=== PATIENT | female | born 1975 | race Two or more races ===

== ENCOUNTER 2020-04-13 09:07 | Day surgery (SDC) | payer OTHER ==
[~2020-04-13] VITALS: Ht 171.4 cm; Wt 53.2 kg
[2020-04-13] MEDS ORDERED: CHLORHEXIDINE 15 ML UDC ONE (09:37)
[2020-04-13] MEDS ORDERED: FERR324T5 PO (09:40)
[2020-04-13] MEDS ORDERED: OMEP40CA42 PO (09:40)
[2020-04-13] MEDS ORDERED: SUCR1TAB PO (09:40)
[2020-04-13 09:44] VITALS: BP 116/77
[2020-04-13] MEDS ORDERED: MIDAZOLAM 1 MG/ML, 2ML ONE (09:49)
[2020-04-13] MEDS ORDERED: FENTANYL PF 100 MCG/2ML ONE ×2 (09:49→11:28)
[2020-04-13] MEDS ORDERED: DEXAMETHASONE 4 MG/ML, 1ML ONE ×2 (09:52→10:41)
[2020-04-13 09:57] LABS: HCG UR SG 1.028 (1.003-1.030)
[2020-04-13] MEDS ORDERED: CHLORHEXIDINE 15 ML UDC MM ONE (10:00)
[2020-04-13] MEDS ORDERED: LACTATED RINGERS 1,000 ML IV SCH (10:00)
[2020-04-13] MEDS ORDERED: PROPOFOL 10 MG/ML, 20ML ONE (10:41)
[2020-04-13] MEDS ORDERED: ONDANSETRON 2MG/ML, 2ML ONE (10:41)
[2020-04-13] MEDS ORDERED: SUCCINYLCHOLINE 20 MG/ML, 10ML ONE (10:41)
[2020-04-13] MEDS ORDERED: EPINEPHRINE SYRINGE 0.1 MG/ML, 10ML ONE (11:36)
[2020-04-13] MEDS ORDERED: OXYcodone 5 MG/5 ML ORAL.SOL UDC PO PRN (12:00)
[2020-04-13] MEDS ORDERED: FENTANYL PF 100 MCG/2ML IV PRN (12:00)
[2020-04-13] MEDS ORDERED: PROMETHAZINE 25 MG/ML, 1ML IVPush PRN (12:00)
[2020-04-13] MEDS ORDERED: ONDANSETRON 2MG/ML, 2ML IVPush PRN (12:00)
[2020-04-13] MEDS ORDERED: ALBUTEROL SULFATE 2.5 MG/3 ML NPPB PRN (12:00)
[2020-04-13] MEDS ORDERED: hydrALAzine 20 MG/ML, 1ML IV PRN (12:00)
[2020-04-13] MEDS ORDERED: PROMETHAZINE 12.5 MG SUPP PR PRN (12:00)
[2020-04-13] MEDS ORDERED: MEPERIDINE/PF 25MG/0.5ML IVPush PRN (12:00)
[2020-04-13] MEDS ORDERED: HYDROmorphone 1 MG/ML, 1ML INJ IVPush PRN (12:00)
[2020-04-13] MEDS ORDERED: DIAZEPAM 5 MG/ML, 2ML IVPush PRN (12:00)
[2020-04-13] MEDS ORDERED: MIDAZOLAM 1 MG/ML, 2ML IV PRN (12:00)
[2020-04-13] MEDS ORDERED: LABETALOL 5MG/ML, 20ML IV PRN (12:00)
[2020-04-13] MEDS ORDERED: DIPHENHYDRAMINE 50 MG/ML, 1ML IVPush PRN (12:00)
[2020-04-13] MEDS ORDERED: EPHEDRINE 50 MG/ML, 1ML IVPush PRN (12:00)
[2020-04-13] MEDS ORDERED: OMNIPAQUE 350 MG/ML, 50 ML BOTTLE ONE (12:32)
== END 2020-04-13 13:50 | disposition home or self-care (01) ==
LOC: OUT 09:07
PROVIDERS: ATTEND Internal Medicine
DX: C16.9 Malignant neoplasm of stomach, unspecified (principal); C96.9 Malignant neoplasm of lymphoid, hematopoietic and related tissue, unspecified; C24.0 Malignant neoplasm of extrahepatic bile duct; K86.89 Other specified diseases of pancreas; Z79.899 Other long term (current) drug therapy; Z20.828 Contact with and (suspected) exposure to other viral communicable diseases
CPT/HCPCS: 43239; 43259; 43274; 74328; 81025; 87635; 88104; 88112; 88172; 88173; 88305; 88307; C1894; C2625; J0330; J1100; J2250; J2405; J2704; J3010; J7120; Q9967; 88333

== ENCOUNTER → 2020-06-18 | Outpatient (CLI) | payer OTHER ==
[~2020-06-18] MED LIST: FERR324T5 PO; OMEP40CA42 PO; OXYC1TAB14 PO; POLY17PO5 PO; SUCR1TAB PO; antibiotic PO
[2020-06-18 10:31] LABS: BASOPHILS % (AUTO) 1 % (0-1); EOSINOPHILS % (AUTO) 5 % (1-7); LYMPHOCYTES % (AUTO) 13 % (22-44); MEAN CORPUSCULAR HEMOGLOBIN 24.4 pg (27.0-34.8); MEAN CORPUSCULAR HGB CONC 31.1 g/dL (32.4-35.8); MEAN PLATELET VOLUME 7.6 fL (7.4-10.4); MONOCYTES % (AUTO) 1 % (2-9); NEUTROPHILS % (AUTO) 81 % (42-75); PLATELET COUNT 342 x10^3/uL (130-400); RED BLOOD COUNT 3.89 x10^6/uL (3.82-5.3); RED CELL DISTRIBUTION WIDTH 19.2 % (9.6-15.2)
[2020-06-18 10:38] LABS: MD NO
== END | disposition home or self-care (01) ==
LOC: STAR 08:09
PROVIDERS: ATTEND Internal Medicine Geriatric Medicine
DX: Z01.812 Encounter for preprocedural laboratory examination (principal); K86.89 Other specified diseases of pancreas; Z20.822 Contact with and (suspected) exposure to COVID-19
CPT/HCPCS: 85025; 87635

== ENCOUNTER 2020-06-22 11:53 | Day surgery (SDC) | payer OTHER ==
[~2020-06-22] VITALS: Ht 170.2 cm; Wt 49.8 kg
[2020-06-22 12:25] VITALS: BP 121/80
[2020-06-22] MEDS ORDERED: CHLORHEXIDINE 15 ML UDC ONE (12:30)
[2020-06-22] MEDS ORDERED: CHLORHEXIDINE 15 ML UDC MM ONE (12:30)
[2020-06-22] MEDS ORDERED: LACTATED RINGERS 1,000 ML IV SCH (13:00)
[2020-06-22] MEDS ORDERED: FENTANYL PF 100 MCG/2ML ONE (13:19)
[2020-06-22] MEDS ORDERED: MIDAZOLAM 1 MG/ML, 2ML ONE (13:19)
[2020-06-22] MEDS ORDERED: DEXAMETHASONE 4 MG/ML, 1ML ONE (13:23)
[2020-06-22] MEDS ORDERED: SUCCINYLCHOLINE 20 MG/ML, 10ML ONE (13:23)
[2020-06-22] MEDS ORDERED: PROPOFOL 10 MG/ML, 20ML ONE (13:23)
[2020-06-22] MEDS ORDERED: ONDANSETRON 2MG/ML, 2ML ONE (13:23)
[2020-06-22 13:29] LABS: HCG UR SG 1.016 (1.003-1.030)
[2020-06-22] MEDS ORDERED: hydrALAzine 20 MG/ML, 1ML IV PRN (13:30)
[2020-06-22] MEDS ORDERED: OXYcodone 5 MG/5 ML ORAL.SOL UDC PO PRN (13:30)
[2020-06-22] MEDS ORDERED: ACETAMINOPHEN 325 MG TABLET PO PRN (13:30)
[2020-06-22] MEDS ORDERED: LABETALOL 5MG/ML, 20ML IV PRN (13:30)
[2020-06-22] MEDS ORDERED: PROMETHAZINE 25 MG/ML, 1ML IV PRN (13:30)
[2020-06-22] MEDS ORDERED: FENTANYL PF 100 MCG/2ML IV PRN (13:30)
[2020-06-22] MEDS ORDERED: MEPERIDINE/PF 25MG/0.5ML IVPush PRN (13:30)
[2020-06-22] MEDS ORDERED: DIAZEPAM 5 MG/ML, 2ML IVPush PRN (13:30)
[2020-06-22] MEDS ORDERED: ALBUTEROL SULFATE 2.5 MG/3 ML NPPB PRN (13:30)
[2020-06-22] MEDS ORDERED: HYDROmorphone 2 MG/ML, 1ML IVPush PRN (13:30)
[2020-06-22] MEDS ORDERED: KETOROLAC 30 MG/1 ML IV PRN (13:30)
[2020-06-22] MEDS ORDERED: OMNIPAQUE 350 MG/ML, 50 ML BOTTLE ONE (14:11)
== END 2020-06-22 15:30 | disposition home or self-care (01) ==
LOC: OUT 11:53
PROVIDERS: ATTEND Internal Medicine Geriatric Medicine
DX: Z46.59 Encounter for fitting and adjustment of other gastrointestinal appliance and device (principal); K80.51 Calculus of bile duct without cholangitis or cholecystitis with obstruction; C16.9 Malignant neoplasm of stomach, unspecified
CPT/HCPCS: 43264; 43276; 74328; 81025; C1894; C2625; J0330; J1100; J2250; J2405; J2704; J3010; J7120; Q9967